=== PATIENT | male | born 1980 | race Caucasian/White ===

== ENCOUNTER 2021-11-11 02:25 | Outpatient (CLI) | payer BC, SELFPAY ==
[2021-11-11 13:50] LABS: Abs Immature Grans 0.03 10^3/uL (0.0-0.06); Absolute Basophil Count 0.06 10^3/uL (0.0-0.2); Absolute Lymphocyte Count 3.24 10^3/uL (1.2-3.4); Absolute Monocyte Count 1.28 10^3/uL (0.1-0.8); Basophils % 0.5; HCT 42.5 % (40.0-50.0); HGB 15.7 g/dL (13.5-17.5); Immature Grans % 0.3; Lymphocytes % 28.2; MCH 32.4 pg (27.0-33.0); MCHC 36.9 % (32.0-36.0); MCV 87.8 fL (80-95); MPV 9.4 fL (8.0-11.0); Monocytes % 11.1; Neutrophils % 58.9; Nucleated RBC 0 %; Platelet Count 621 10^3/uL (130-400); RBC 4.84 10^6/uL (4.36-5.78); RDW 11.9 % (11.8-14.1); RDW-SD 38.1 fL; WBC 11.49 10^3/uL (4.4-10.8)
[2021-11-11 13:53] LABS: Absolute Eosinophil Count 0.11 10^3/uL (0.0-0.7); Absolute Neutrophil Count 6.77 10^3/uL (1.2-6.7)
[2021-11-11 13:55] LABS: ESR 2 mm/hr (0-15)
[2021-11-11 14:26] LABS: ALT 65 U/L (16-63); AST 25 U/L (15-37); Albumin 4.4 g/dL (3.4-5.0); Alkaline Phosphatase 57 U/L (46-116); Anion Gap 9.3 mmol/L (3-11); BUN 12 mg/dL (7-18); Bilirubin, Total 0.7 mg/dL (0.2-1.0); C-Reactive Protein 0.22 mg/dL (0.0-0.3); CO2 25.7 mmol/L (21.0-32.0); CREATININE 0.7 mg/dL (0.70-1.30); Calcium 9.7 mg/dL (8.5-10.1); Chloride 101 mmol/L (98-107); Glucose 98 mg/dL (74-106); Potassium 4.4 mmol/L (3.5-5.1); Sodium 136 mmol/L (136-145); Total Protein 7.9 g/dL (6.4-8.2)
== END 2021-11-11 02:26 | disposition home or self-care (01) ==
LOC: LBO 02:26
PROVIDERS: Visit Provider Nurse Practitioner Family
DX: L50.1 Idiopathic urticaria (principal)
CPT/HCPCS: 36415; 80053; 85652; 85025; 86140

== ENCOUNTER 2021-12-30 02:01 | Outpatient (CLI) | payer BC, SELFPAY ==
[2021-12-31 00:04] LABS: COVID-19 RT-PCR UVMMC Result Negative (Negative)
== END 2021-12-30 02:02 | disposition home or self-care (01) ==
PROVIDERS: Visit Provider Nurse Practitioner Family
DX: Z20.822 Contact with and (suspected) exposure to COVID-19 (principal)
CPT/HCPCS: U0003

== ENCOUNTER 2022-01-01 01:41 | Outpatient (RCR) | payer BC, SELFPAY | END 2022-01-23 23:59 | disposition home or self-care (01) | LOC: INF 01:41 | PROVIDERS: Visit Provider Nurse Practitioner Acute Care | DX: Z29.8 Encounter for other specified prophylactic measures (principal); D58.0 Hereditary spherocytosis; Z90.81 Acquired absence of spleen | CPT/HCPCS: 96372; Q0221 ==

== ENCOUNTER 2022-05-26 14:39 | Emergency (ER) | payer BC, SELFPAY ==
[2022-05-26 14:43] VITALS: BP 157/84; PULSE 98; RESP 16; TEMP 36.8; O2SAT 98
--- NOTE | 2022-05-26 15:45 | DI.MRI_ITS ---
Exam(s) MR ANGIO BRAIN WO EXAM: MR ANGIO BRAIN WO CLINICAL HISTORY: right facial paresthesias TECHNIQUE: Magnetic resonance angiography was performed on 1.5 malorie unit with [id number] sequen ce COMPARISON: No exams were available for comparison FINDINGS: ANTERIOR CIRCULATION: Both internal carotid arteries are demonstrated be patent in the skull base-car otid canals as well as within the bilateral cavernous sinuses. The supraclinoid aspects of these ves sels are patent. Both A1 segments are patent as are the anterior cerebral arteries and there is no e vidence of aneurysm at the level of the anterior communicating artery. Both middle cerebral arteries are patent without significant stenosis nor occlusion. No intraluminal thrombus. Sylvian fissure branches appear patent. There are no aneurysms. POSTERIOR CIRCULATION: basilar artery is formed at the skull base by contribution from both vertebral arteries which exhibit equal diameters at the skull base. basilar artery ascends in the midline wit h normal luminal diameter and no evidence of intraluminal thrombus nor dissection. Distally the basi lar artery gives off bilateral superior cerebellar arteries and above this level terminates as patent bilateral posterior cerebral arteries. There is no evidence of aneurysm of the tip of the basilar a rtery IMPRESSION: 1. Patent intracranial arteries without evidence of significant stenosis, occlusion or aneurysms. Report called by myself to ER provider. DATA REPOSITORY:
--- NOTE | 2022-05-26 15:45 | DI.MRI_ITS ---
Exam(s) MR BRAIN WO EXAM: MR BRAIN WO CLINICAL HISTORY: right facial paresthesias TECHNIQUE: Multiplanar multisequence MRI of the brain was performed. COMPARISON: MR MR ANGIO BRAIN WO from 05/26/2022 FINDINGS: CEREBRAL PARENCHYMA: There is no evidence of intracranial hemorrhage, mass effect, or shift of midline structures. There are no extra-axial fluid collections. Ventricles are not enlarged or shifted. There is no significant focal signal abnormality in the cerebellar hemispheres nor within the suri, m idbrain, and thalami. There is no abnormal signal abnormality in the periventricular white matter. There is no significant focal signal abnormality evident on diffusion imaging to suggest acute ischem ic event. No evident of micro hemorrhages on susceptibility weighted imaging. PITUITARY GLAND: No mass nor parasellar abnormality. No obvious abnormality in the cavernous sinuses. FLOW VOIDS: The expected flow void are noted. No evidence of obvious aneurysm nor obvious vascular ma lformation. PARANASAL SINUSES: The visualized paranasal sinuses appear unremarkable. No obvious finding ORBITS: No obvious findings. IMPRESSION: No significant intracranial findings on this noninfused MRI scan of the brain. DATA REPOSITORY:
--- NOTE | 2022-05-26 15:45 | DI.MRI_ITS ---
Exam(s) MR ANGIO NECK WO CLINICAL HISTORY: paresthesia right side of face. TECHNIQUE: Magnetic resonance angiography was performed on 1.5 malorie unit with [id number] sequen ce CONTRAST MATERIAL: None COMPARISON: None. FINDINGS: ANTERIOR CIRCULATION: Aortic arch anatomy is conventional. Both common carotid arteries ascend with normal luminal diameters. There is no evidence of significa nt stenosis at the carotid bulbs and proximal internal carotid arteries in the neck. The internal ca rotid arteries in the upper neck exhibits normal straight line flow with no stenosis. Also demonstra serafin to be patent in the skull base-carotid canals. POSTERIOR CIRCULATION: The vertebral arteries arise in conventional fashion off of the subclavian art eries with no obvious stenosis at their origins. Both vertebral arteries ascend with normal and equa l luminal diameters in the foramen transversarium. At the skull base both vertebral arteries are mary wn to contribute to the formation of the basilar artery. There is no evidence of vertebral artery th rombosis nor dissection IMPRESSION: Patent carotid arteries in the neck. No hemodynamics significant stenosis. Both vertebral arteries in the neck are patent and exhibit equal luminal diameters. No evidence of d issection. DATA REPOSITORY:
--- NOTE | 2022-05-26 16:00 | RT.EKG_ITS ---
APPROVED REPORT Exam: Resting ECG Reason for Exam: paresthesias Patient Location: E HR:78 bpm ECG Measurements Heart Rate 78 AXIS LA 150 P 24 QRSd 85 QRS 50 QT 361 T 23 QTc 412 Conclusion Sinus rhythm...normal P axis, V-rate 60- 99
[2022-05-26 17:47] LABS: ALT 48 U/L (16-63); AST 31 U/L (15-37); Albumin 4.1 g/dL (3.4-5.0); Alkaline Phosphatase 52 U/L (46-116); Anion Gap 8.2 mmol/L (3-11); BUN 14 mg/dL (7-18); Bilirubin, Total 0.8 mg/dL (0.2-1.0); CO2 25.8 mmol/L (21.0-32.0); CREATININE 0.9 mg/dL (0.70-1.30); Calcium 9.1 mg/dL (8.5-10.1); Chloride 105 mmol/L (98-107); Estimated GFR 110.73 (mL/min/1.73m2); Glucose 94 mg/dL (74-106); Potassium 3.9 mmol/L (3.5-5.1); Sodium 139 mmol/L (136-145); Total Protein 8.1 g/dL (6.4-8.2); Troponin I < 50 ng/L (<or=60)
[2022-05-26 18:06] LABS: Abs Immature Grans 0.03 10^3/uL (0.0-0.06); Absolute Basophil Count 0.08 10^3/uL (0.0-0.2); Absolute Eosinophil Count 0.13 10^3/uL (0.0-0.7); Absolute Monocyte Count 1.49 10^3/uL (0.1-0.8); Absolute Neutrophil Count 6.98 10^3/uL (1.2-6.7); Basophils % 0.6; HCT 40.4 % (40.0-50.0); HGB 15.1 g/dL (13.5-17.5); Immature Grans % 0.2; Lymphocytes % 30.7; MCH 32.6 pg (27.0-33.0); MCHC 37.4 % (32.0-36.0); MCV 87 fL (80-95); MPV 9.6 fL (8.0-11.0); Monocytes % 11.9; Neutrophils % 55.6; Platelet Count 577 10^3/uL (130-400); RBC 4.63 10^6/uL (4.36-5.78); RDW-SD 38.6 fL; WBC 12.56 10^3/uL (4.4-10.8)
[2022-05-26 18:07] LABS: Absolute Lymphocyte Count 3.86 10^3/uL (1.2-3.4)
--- NOTE | 2022-05-26 19:14 | ED.GENADUL_ITS ---
Discharge Plan Disposition Patient Disposition: HOME Condition: Stable Discharge Details Clinical Impression: Facial paresthesia Primary Care Provider: [facility] ED Provider: Paty Dorsey Home Meds and New Rx's Prescriptions: Continued venlafaxine 75 mg Tablet 75 mg PO DAILY cimetidine 200 mg Tablet 200 mg PO QAC levocetirizine 5 mg Tablet 5 mg PO DAILY Discharge Instructions Additional Instructions: Please follow-up with your contact center representative and your pcp regarding today's visit Your tests today are reassuring including the MRI of your brain and neck Please return earlier should you have new or worsening complaints Referrals: [facility] [Primary Care Provider] - 1 day Medical Decision Making Patient appears well His MRI MRA of his head and neck do not show acute abnormality He has mild leukocytosis and thrombocytosis, however this is his baseline when compared to prior Asymptomatic at time of reassessment He is encouraged to call his contact center representative for follow-up and let us know if he still having residual symptoms There is no evidence of allergic reaction or anaphylaxis Return precautions discussed and patient expressed understanding Medical Records Medical records reviewed: Yes I reviewed the patient's medical records. Lab Data Lab results reviewed: Yes I reviewed the patient's lab results. HPI General Date/Time Provider Initiated Documentation: 05/26/22 14:54 . HPI Narrative: This 41-year-old gentleman with history of hereditary spherocytosis presents with reports of facial paresthesia and left foot paresthesia at a higher Xolair administration. Patient states 9 days ago he received an injection of Xolair for urticaria. He states that immediately after the injection he had some paresthesias to his right lateral periorbital region and across his entire upper lip. He states that the upper lip portion resolved approximately an hour later but the intermittent right lateral paresthesias to his continued. He gets them intermittently throughout the day. He denies any dizziness or headache associated. He also has intermittent left foot pain or paresthesias. He states that also occurred with the injection. He denies any difficulty swallowing, chest pain, shortness of breath. He denies any fever or chills. He denies any additional symptoms including declining any speech or sensation change additionally. He denies any weakness. He denies any history of similar symptoms in the past. He has not related to his contact center representative that he is having the symptoms. Related Data Home Medications Medication Instructions Recorded Confirmed cimetidine 200 mg tablet 200 mg PO QAC 05/26/22 05/26/22 levocetirizine 5 mg tablet 5 mg PO DAILY 05/26/22 05/26/22 venlafaxine 75 mg tablet 75 mg PO DAILY 05/26/22 05/26/22 Allergies Allergy/AdvReac Type Severity Reaction Status Date / Time No Known Allergies Allergy Verified 05/26/22 14:49 General Stated Complaint: [facility] REVA: 4 Review of Systems All systems reviewed & are unremarkable except as noted in HPI and below PFSH All Active Problems (Updated 05/26/22 @ 18:24 by SHAYLEE Chau) Facial paresthesia (Acute) Social History Smoking/Tobacco Use Status: Never Smoking risk assessment performed?: Yes Alcohol Intake: current Alcohol Intake frequency: a few times a month Alcohol type: beer Drug use: Never Substance use type: does not use Do you feel safe at home: Yes Do you feel safe in your relationship?: Yes Exam Const General: cooperative, comfortable and no acute distress HENMT Head: normal to inspection Eyes Pupils: PERRL Resp Effort & Inspection: normal respiratory effort Cardio Rate: regular rate Rhythm: regular rhythm GI Inspection: normal to inspection Skin General skin exam: no rashes or lesions noted Neuro General: patient alert and patient oriented x3 Cranial Nerves: CN's II-XI intact bilaterally and tongue midline Cognition: normal cognition Speech: speech normal Gait: normal gait Other: neg fnf, neg pronator drift, neg heel-rouse Extrem Other: distal pulses intact, strength and sensation intact distally Course Vital Signs Vital signs: Vital Signs Temperature 36.8 C 05/26/22 14:43 Pulse 98 H 05/26/22 14:43 Respiratory Rate 16 05/26/22 14:43 Blood Pressure 157/84 H 05/26/22 14:43 Pulse Oximetry 98 05/26/22 14:43 Temperature 36.8 C 05/26/22 14:43 Temperature Source Oral 05/26/22 14:43 Pulse 98 H 05/26/22 14:43 Respiratory Rate 16 05/26/22 14:43 Respiratory Effort 05/26/22 17:29 Respiratory Depth Normal 05/26/22 17:27 Respiratory Pattern Normal 05/26/22 17:27 Blood Pressure 157/84 H 05/26/22 14:43 Blood Pressure Position Sitting 05/26/22 14:43 Pulse Oximetry 98 05/26/22 14:43 Oxygen Delivery Method Room Air 05/26/22 14:43 Oxygen Flow Rate 0 05/26/22 14:43 Pain Level 0 05/26/22 18:35 Lab/Test Results Lab/Test Results: Laboratory Tests Range/Units 05/26/22 05/26/22 17:25 17:25 WBC (4.4-10.8) 10^3/uL 12.56 H RBC (4.36-5.78) 10^6/uL 4.63 Hgb (13.5-17.5) g/dL 15.1 Hct (40.0-50.0) % 40.4 MCV (80-95) fL 87 MCH (27.0-33.0) pg 32.6 MCHC (32.0-36.0) % 37.4 H RDW (11.8-14.1) % 12.0 Plt Count (130-400) 10^3/uL 577 H MPV (8.0-11.0) fL 9.6 Immature Gran % 0.2 Neutrophils % 55.6 Lymphocytes % 30.7 Monocytes % 11.9 Eosinophils % 1.0 Basophils % 0.6 Nucleated RBC % (0.0-0.3) % 0.0 Absolute Neutrophils (1.2-6.7) 10^3/uL 6.98 H Absolute Lymphocytes (1.2-3.4) 10^3/uL 3.86 H Absolute Monocytes (0.1-0.8) 10^3/uL 1.49 H Absolute Eosinophils (0.0-0.7) 10^3/uL 0.13 Absolute Basophils (0.0-0.2) 10^3/uL 0.08 Sodium (136-145) mmol/L 139 Potassium (3.5-5.1) mmol/L 3.9 Chloride (98-107) mmol/L 105 Carbon Dioxide (21.0-32.0) mmol/L 25.8 Anion Gap (3-11) mmol/L 8.2 BUN (7-18) mg/dL 14 Creatinine (0.70-1.30) mg/dL 0.9 Est GFR (CKD-EPI 2020) (mL/min/1.73m2) 110.73 Glucose (74-106) mg/dL 94 Calcium (8.5-10.1) mg/dL 9.1 Total Bilirubin (0.2-1.0) mg/dL 0.8 AST (15-37) U/L 31 ALT (16-63) U/L 48 Alkaline Phosphatase (46-116) U/L 52 Troponin I (<or=60) ng/L < 50 Total Protein (6.4-8.2) g/dL 8.1 Albumin (3.4-5.0) g/dL 4.1
== END 2022-05-26 18:35 | disposition home or self-care (01) ==
PROVIDERS: Emergency Provider Physician Assistant; PCP Nurse Practitioner Family
DX: R20.2 Paresthesia of skin (principal); D72.829 Elevated white blood cell count, unspecified; D75.839 Thrombocytosis, unspecified
CPT/HCPCS: 70544; 70547; 80053; 93005; 99284; 70551; 84484; 85025; 93010; 99285

== ENCOUNTER 2022-07-13 03:25 | Outpatient (RCR) | payer BC, SELFPAY | END 2022-07-26 23:59 | disposition home or self-care (01) | LOC: INF 03:25 | PROVIDERS: PCP Nurse Practitioner Family; Visit Provider Family Medicine | DX: D58.0 Hereditary spherocytosis (principal) | CPT/HCPCS: 96372; Q0221 ==